=== PATIENT | female | born 2000 | race Two or more races ===

== ENCOUNTER 2022-10-29 19:43 | Emergency (ER) | payer MEDICAID ==
[2022-10-29] MEDS ORDERED: Sodium Chloride 0.9% 10 ML Syringe FLUSH PRN ×2 (20:07)
[2022-10-29] MEDS ORDERED: Sodium Chloride 0.9% 1,000 ML IV ONE (20:07)
[2022-10-29] MEDS ORDERED: Sodium Chloride 0.9% 2.5 ML Syringe FLUSH PRN ×2 (20:07)
[2022-10-29 22:05] LABS: CARBON DIOXIDE,CO2 23.4 mmol/L (21.0-32.0); POTASSIUM,K 4.1 mmol/L (3.5-5.1)
[2022-10-29] MEDS ORDERED: Pantoprazole 40 MG Tab.CR PO SCH (22:15)
== END 2022-10-29 22:35 | disposition home or self-care (01) ==
LOC: MW.ED 19:43
DX: O99.611 Diseases of the digestive system complicating pregnancy, first trimester (principal); K80.50 Calculus of bile duct without cholangitis or cholecystitis without obstruction; K29.70 Gastritis, unspecified, without bleeding; Z3A.01 Less than 8 weeks gestation of pregnancy
CPT/HCPCS: 36415; 76705; 76801; 80053; 81003; 84702; 85025; 85610; 86900; 86901; 99284; A9270; 99283

== ENCOUNTER 2022-11-28 15:34 | Emergency (ER) | payer MEDICAID ==
[2022-11-28] MEDS ORDERED: Acetaminophen 325 MG Tab PO ONE (16:00)
[2022-11-28 16:12] LABS: BASOPHILS PERCENT AUTO 0.2 % (0.0-1.5); EOSINOPHILS ABSOLUTE AUTO 0.2 K/uL (0.0-0.7); EOSINOPHILS PERCENT AUTO 1.8 % (0.0-7.0); HEMATOCRIT 36.4 % (36.0-46.0); HEMOGLOBIN 12.5 g/dL (12.0-16.0); LYMPHOCYTES ABSOLUTE AUTO 2.1 K/uL (0.6-2.4); LYMPHOCYTES PERCENT AUTO 17.8 % (16.0-40.0); MEAN CORPUSCULAR HEMOGLOBIN 29.8 pg (27.0-32.0); MEAN CORPUSCULAR HGB CONC 34.3 g/dL (31.0-37.0); MEAN CORPUSCULAR VOLUME 86.7 fL (80.0-98.0); MONOCYTES PERCENT AUTO 8.7 % (0.0-15.0); NEUTROPHILS ABSOLUTE AUTO 8.6 K/uL (1.4-5.7); NEUTROPHILS PERCENT AUTO 71.5 % (48.0-80.0); PLATELET COUNT,PLT 348 K/uL (150-400); WHITE BLOOD CELL COUNT,WBC 11.99 K/uL (4.0-11.0)
[2022-11-28 16:35] LABS: A/G RATIO 0.8 (0.9-1.6); ALBUMIN 3.1 g/dL (3.4-5.0); BILIRUBIN TOTAL 0.2 mg/dL (0.2-1.0); CALCIUM 9.1 mg/dL (8.5-10.1); CARBON DIOXIDE,CO2 24.7 mmol/L (21.0-32.0); CREATININE 0.5 mg/dL (0.6-1.0); EST CRCL DRUG DOSING (CG) 153.69 mL/min; PROTEIN TOTAL,TP 7.1 g/dL (6.4-8.2)
[2022-11-28 16:47] LABS: APPEARANCE,URINE CLEAR; BILIRUBIN,URINE NEGATIVE (NEGATIVE); COLOR,URINE YELLOW; GLUCOSE,URINE NEGATIVE (NEGATIVE); KETONES,URINE NEGATIVE (NEGATIVE); LEUKOCYTE ESTERASE,URINE TRACE (NEGATIVE); NITRITE,URINE NEGATIVE (NEGATIVE); OCCULT BLOOD,URINE NEGATIVE (NEGATIVE); PH,URINE 6.5 (5.0-8.0); PROTEIN,URINE NEGATIVE (NEGATIVE); UROBILINOGEN,URINE 0.2 EU/dL (<2.0)
[2022-11-28 17:04] LABS: RBC,URINE NONE SEEN (0-2/HPF); WBC,URINE 0-5 (0-5/HPF)
[2022-11-28 17:05] LABS: BACTERIA,URINE RARE (NEGATIVE); EPITHELIAL CELLS,URINE RARE (NONE-FEW)
== END 2022-11-28 17:30 | disposition home or self-care (01) ==
LOC: MW.ED 15:34
DX: R10.2 Pelvic and perineal pain (principal); Z91.048 Other nonmedicinal substance allergy status
CPT/HCPCS: 36415; 80053; 81001; 85025; 87086; 99284; A9270; 99283

== ENCOUNTER 2023-05-07 03:06 | Inpatient (IN) | payer MEDICAID ==
[2023-05-07] MEDS ORDERED: Lidocaine 1% 50 ML MDV INJECT PRN (04:59)
[2023-05-07] MEDS ORDERED: Sodium Chloride 0.9% 2.5 ML Syringe FLUSH PRN (04:59)
[2023-05-07] MEDS ORDERED: Water For Irrigation,Sterile 1,000 ML Container IRR PRN (04:59)
[2023-05-07] MEDS ORDERED: Sodium Chloride 0.9% 20 ML SDV IV PRN (04:59)
[2023-05-07] MEDS ORDERED: Methylergonovine 0.2 MG/1 ML Amp IM PRN (04:59)
[2023-05-07] MEDS ORDERED: Misoprostol 200 MCG Tab PO PRN (04:59)
[2023-05-07] MEDS ORDERED: Sodium Chloride 0.9% 10 ML Syringe FLUSH PRN (04:59)
[2023-05-07] MEDS ORDERED: Tranexamic Acid IN NACL,ISO-OS 1,000 MG in Premix Bag 1 BAG IV PRN ×2 (04:59)
[2023-05-07] MEDS ORDERED: Carboprost Tromethamine 250 MCG/1 mL Vial IM PRN (04:59)
[2023-05-07] MEDS ORDERED: Oxytocin/0.9 % Sodium Chloride 30 UNIT/500 ML BAG IV SCH (05:00)
[2023-05-07] MEDS: Lactated Ringers 1,000 ML IV SCH ×2 (05:14→06:14)
[2023-05-07 05:42] LABS: HEMATOCRIT 32.1 % (37.0-47.0); HEMOGLOBIN 10.9 g/dL (12.0-16.0); MEAN CORPUSCULAR HEMOGLOBIN 26.3 pg (28.0-32.0); MEAN CORPUSCULAR VOLUME 77.3 fL (83.0-99.0); MEAN PLATELET VOLUME 12.5 fL (9.4-12.3); PLATELET COUNT,PLT 370 K/uL (150-400); RED BLOOD CELL COUNT 4.15 M/uL (4.10-5.30); WHITE BLOOD CELL COUNT,WBC 15.73 K/uL (3.9-11.3)
[2023-05-07] MEDS ORDERED: fentaNYL 100 MCG/2 ML SDV ONE (06:16)
[2023-05-07] MEDS ORDERED: Bupivacaine 0.25% 10 ML SDV ONE ×2 (06:16→07:19)
[2023-05-07] MEDS ORDERED: ePHEDrine 50 MG/ML SDV IVPUSH PRN ×2 (06:45)
[2023-05-07] MEDS ORDERED: Phenylephrine HCl 0.5 MG/5 ML AMP IVPUSH PRN (06:45)
[2023-05-07] MEDS ORDERED: Ropivacaine HCl/PF 400 MG in Premix Bag 1 BAG EPIDUR SCH (06:45)
[2023-05-07] MEDS ORDERED: Ropivacaine/PF 400 MG/200 ML PCA ONE (07:19)
[2023-05-07] MEDS ORDERED: Docusate Sodium 100 MG Cap PO PRN (14:21)
[2023-05-07] MEDS ORDERED: Lanolin 100% Cream 7 GM Tube TOP PRN (14:21)
[2023-05-07] MEDS ORDERED: Acetaminophen 500 MG Tab PO PRN (14:21)
[2023-05-07] MEDS ORDERED: Bisacodyl 10 MG Supp RECTAL PRN (14:21)
[2023-05-07] MEDS ORDERED: Ibuprofen 800 MG Tab PO PRN (14:21)
[2023-05-07] MEDS: Benzocaine/Menthol 20%-0.5% Spray 78 GM Cannister TOP PRN (17:39)
[2023-05-07] MEDS: Witch Hazel Medicated Pads 40/Jar TOP PRN (17:39)
[2023-05-08 05:50] LABS: HEMATOCRIT 28.4 % (37.0-47.0); HEMOGLOBIN 9.6 g/dL (12.0-16.0)
[2023-05-08] MEDS: Benzocaine/Menthol 20%-0.5% Spray 78 GM Cannister TOP PRN (18:50)
[2023-05-08] MEDS: Witch Hazel Medicated Pads 40/Jar TOP PRN (18:50)
== END 2023-05-08 21:20 | disposition home or self-care (01) | DRG 807 ==
LOC: MW.OBCHECK 03:06 → MW.OB 03:07 → MW.OBCHECK 05:00 → OBSVTOIN 05:00 → MW.OB 18:44
PROVIDERS: ADMIT Obstetrics & Gynecology Obstetrics; ATTEND Obstetrics & Gynecology Obstetrics
PROC: 10E0XZZ Delivery of Products of Conception, External Approach (ICD-10-PCS; principal; 2023-05-07)
PROC: 0HQ9XZZ Repair Perineum Skin, External Approach (ICD-10-PCS; 2023-05-07)
PROC: 3E0R3BZ Introduction of Anesthetic Agent into Spinal Canal, Percutaneous Approach (ICD-10-PCS; 2023-05-07)
PROC: 00HU33Z Insertion of Infusion Device into Spinal Canal, Percutaneous Approach (ICD-10-PCS; 2023-05-07)
DX: O70.0 First degree perineal laceration during delivery (principal); Z37.0 Single live birth; Z3A.39 39 weeks gestation of pregnancy
CPT/HCPCS: 00731; 36415; 51702; 59025; 85014; 85018; 85027; 86592; 86850; 86900; 86901; A9270-GY; J2590; J2795; J3010; J3490; J7120

== ENCOUNTER 2023-05-29 21:22 | Emergency (ER) | payer MEDICAID ==
[2023-05-29] MEDS ORDERED: Aluminum Hydroxide/Magnesium Hydroxide/Simethicone XS Susp 30 ML Cup PO ONE (21:58)
[2023-05-29 21:59] LABS: BASOPHILS ABSOLUTE AUTO 0.04 K/uL (0.00-0.20); BASOPHILS PERCENT AUTO 0.4 % (0.0-1.0); EOSINOPHILS ABSOLUTE AUTO 0.24 K/uL (0.00-0.45); EOSINOPHILS PERCENT AUTO 2.4 % (0.0-6.0); HEMATOCRIT 34.9 % (37.0-47.0); HEMOGLOBIN 11.5 g/dL (12.0-16.0); IMMATURE GRAN ABSOLUTE AUTO 0.03 K/uL (0.00-0.05); IMMATURE GRAN PERCENT AUTO 0.3 % (0.0-0.4); LYMPHOCYTES ABSOLUTE AUTO 3.25 K/uL (1.00-4.80); LYMPHOCYTES PERCENT AUTO 32.7 % (24.0-44.0); MEAN CORPUSCULAR VOLUME 78.8 fL (83.0-99.0); MEAN PLATELET VOLUME 10.9 fL (9.4-12.3); MONOCYTES ABSOLUTE AUTO 0.85 K/uL (0.00-0.80); MONOCYTES PERCENT AUTO 8.6 % (0.0-8.0); NEUTROPHILS ABSOLUTE AUTO 5.52 K/uL (1.80-7.70); NEUTROPHILS PERCENT AUTO 55.6 % (41.0-71.0); PLATELET COUNT,PLT 379 K/uL (150-400); RED BLOOD CELL COUNT 4.43 M/uL (4.10-5.30); WHITE BLOOD CELL COUNT,WBC 9.93 K/uL (3.9-11.3)
[2023-05-29 22:29] LABS: A/G RATIO 0.8 (0.9-1.6); ALANINE AMINOTRANSFERASE,ALT 34 IU/L (14-63); ALBUMIN 3.1 g/dL (3.4-5.0); ALKALINE PHOSPHATASE 161 U/L (46-116); ASPARTATE AMNIOTRANSFERASE,AST 38 IU/L (15-37); BILIRUBIN TOTAL 0.3 mg/dL (0.2-1.0); BLOOD UREA NITROGEN,BUN 10 mg/dL (7.0-18.0); CALCIUM 8.8 mg/dL (8.5-10.1); CARBON DIOXIDE,CO2 26.2 mmol/L (21.0-32.0); CHLORIDE,CL 103 mmol/L (98-107); GLUCOSE RANDOM 103 mg/dL (74-106); LIPASE 25 U/L (16-77); POTASSIUM,K 3.8 mmol/L (3.5-5.1); PROTEIN TOTAL,TP 6.9 g/dL (6.4-8.2); SODIUM,NA 136 mmol/L (136-145)
[2023-05-29 22:33] LABS: ESTIMATED GFR 82 mL/min (>60)
[2023-05-29] MEDS ORDERED: Ketorolac 30 MG/ML SDV IM ONE (23:04)
[2023-05-30 00:14] LABS: COLOR,URINE YELLOW; GLUCOSE,URINE NEGATIVE (NEGATIVE); KETONES,URINE TRACE mg/dL (NEGATIVE); LEUKOCYTE ESTERASE,URINE SMALL (NEGATIVE); NITRITE,URINE NEGATIVE (NEGATIVE); OCCULT BLOOD,URINE NEGATIVE (NEGATIVE); PROTEIN,URINE TRACE mg/dL (NEGATIVE)
[2023-05-30 00:37] LABS: APPEARANCE,URINE HAZY; BILIRUBIN,URINE SMALL (NEGATIVE)
[2023-05-30 00:38] LABS: EPITHELIAL CELLS,URINE FEW (NONE-FEW); RBC,URINE 0-1 (0-2/HPF)
[2023-05-30 00:39] LABS: BACTERIA,URINE 1+ (NEGATIVE)
== END 2023-05-30 00:05 | disposition home or self-care (01) ==
LOC: MW.ED 21:22
DX: K80.20 Calculus of gallbladder without cholecystitis without obstruction (principal); Z91.048 Other nonmedicinal substance allergy status
CPT/HCPCS: 36415; 76705; 80053; 81001; 81025; 83690; 85025; 96372; 99284; A9270; J1885; 99283